=== PATIENT | female | born 1985 | race Asian ===

== ENCOUNTER → 2025-04-20 | Day surgery (SDC) | payer BC | END | disposition home or self-care (01) | LOC: FRADUS-SUR 11:25 | PROVIDERS: ATTEND Surgery | PROC: 0H9V3ZX Drainage of Bilateral Breast, Percutaneous Approach, Diagnostic (ICD-10-PCS; principal; 2025-04-20) | DX: C50.412 Malignant neoplasm of upper-outer quadrant of left female breast (principal) | CPT/HCPCS: 19085; 77066-TC; 88305-TC; A4648 ==

== ENCOUNTER 2025-05-11 06:14 | Day surgery (SDC) | payer BC ==
[2025-05-07 12:13] VITALS: BMI 23.8
[2025-05-11] MEDS ORDERED: LIDOCAINE HCL 1%, 10 MG/ML (20ML VIAL) ONE (12:18)
[2025-05-11] MEDS ORDERED: ISOSULFAN BLUE 50 MG/5 ML VIAL SQ ONE (12:18)
[2025-05-11] MEDS ORDERED: PROMETHAZINE HCL 25 MG/1 ML VIAL IVPB PRN (13:53)
[2025-05-11] MEDS ORDERED: LACTATED RINGERS SOLUTION 1,000 ML IV SCH (14:00)
[2025-05-11] MEDS ORDERED: MIDAZOLAM HCL 2 MG/2 ML SINGLE DOSE VIAL ONE (14:11)
[2025-05-11] MEDS ORDERED: PROPOFOL 20 ML ONE (14:11)
[2025-05-11] MEDS ORDERED: KETOROLAC TROMETHAMINE 30 MG/1 ML VIAL ONE (14:12)
[2025-05-11] MEDS ORDERED: DEXAMETHASONE SOD PHOSPHATE 4 MG/1 ML VIAL ONE (14:12)
[2025-05-11] MEDS ORDERED: SEVOFLURANE 250 ML BTL ONE (14:23)
[2025-05-11] MEDS: LIDOCAINE HCL 1%, 10 MG/ML (20ML VIAL) INF ONE ×2 (14:34)
[2025-05-11] MEDS ORDERED: ACETAMINOPHEN INJECTION 100 ML ONE (15:47)
[2025-05-11] MEDS: ACETAMINOPHEN 1000 MG/100 ML BAG IVPB PRN (15:53)
[2025-05-11] MEDS ORDERED: ONDANSETRON 4 MG/2 ML VIAL ONE (16:05)
[2025-05-11] MEDS: ONDANSETRON 4 MG/2 ML VIAL IVPUSH PRN (16:07)
[2025-05-11 16:31] VITALS: RESP 16
[2025-05-11 16:42] VITALS: TEMP 98.1
[2025-05-11 17:10] VITALS: BP 116/65; PULSE 77
== END 2025-05-11 17:15 | disposition home or self-care (01) ==
LOC: JASU-SURG 06:14
PROVIDERS: ATTEND Surgery
PROC: 07B60ZX Excision of Left Axillary Lymphatic, Open Approach, Diagnostic (ICD-10-PCS; 2025-05-11)
PROC: C71L1ZZ Planar Nuclear Medicine Imaging of Upper Chest Lymphatics using Technetium 99m (Tc-99m) (ICD-10-PCS; 2025-05-11)
PROC: 0HBU0ZZ Excision of Left Breast, Open Approach (ICD-10-PCS; principal; 2025-05-11 13:00)
DX: C50.412 Malignant neoplasm of upper-outer quadrant of left female breast (principal); C77.3 Secondary and unspecified malignant neoplasm of axilla and upper limb lymph nodes
CPT/HCPCS: 78195-TC; 88307-TC; 88342-TC; 94760; A9541